=== PATIENT | female | born 1980 | race Caucasian/White ===

== ENCOUNTER 2016-11-02 15:40 | Outpatient (CLI) | payer BC ==
--- OUTSIDE RECORDS SUMMARY | 2016-11-02 15:44 | XMS REPORT | Continuity of Care Document ---
Author Author [facility] Organization [facility] Address Unknown Phone Unavailable Care Team Providers Care Associate Financial Planner Name Role Phone TERRI HAIR MD PCP Insurance Providers Payer Name Policy Number Subscriber Name Relationship [facility] [id number] Adam Mead 01 Advance Directives Directive Response Recorded Date/Time Advance Directives No 09/26/16 6:30pm Health Care Power of Relief Mate No 09/26/16 6:30pm Organ Donor Yes 09/26/16 6:30pm Resuscitation Status Full Code 09/26/16 6:30pm Problems No problem information available. Medications No medication information available. Social History Social History Problem Response Recorded Date/Time Recent Foreign Travel No 09/26/2016 6:33pm Recent Infectious Disease Exposure No 09/26/2016 6:33pm Smoking Status Never a Smoker 09/26/2016 6:31pm Query Response Start Date Stop Date Smoking Status Never a Smoker Hospital Discharge Instructions No hospital discharge instructions. Plan of Care Discharge Date 09/26/16 6:58pm Instructions/Education Provided OB OUTPATIENT DISCHARGE Prescriptions See Medication Section Functional Status No functional status results. Allergies, Adverse Reactions, Alerts No allergy information available. Immunizations No immunization records. Vital Signs Acute Vital Signs Vital Response Date/Time Temperature (Fahrenheit) 98.3 degrees F (97.6 - 99.5) 09/26/2016 5:45pm Temperature (Calculated Celsius) 36.19525 degrees C (36.4 - 37.5) 09/26/2016 5:45pm Temperature Source Tympanic 09/26/2016 5:45pm Pulse Rate (adult) 87 bpm (60 - 90) 09/26/2016 5:45pm Respiratory Rate 18 bpm (12 - 24) 09/26/2016 5:45pm Blood Pressure 119/77 mm Hg 09/26/2016 5:45pm Blood Pressure Mean 91 mm Hg 09/26/2016 5:45pm Pain Numeric Pain Scale 2 09/26/2016 6:32pm Height (Feet) 5 feet 09/26/2016 5:00pm Height (Inches) 6.00 inches 09/26/2016 5:00pm Height (Calculated Centimeters) 167.103409 cm 09/26/2016 5:00pm Weight (Pounds) 178 pounds 09/26/2016 5:00pm Weight (Ounces) 0.0 oz 09/26/2016 5:00pm Weight (Calculated Grams) 26155.44 gm 09/26/2016 5:00pm Weight (Calculated Kilograms) 80.062102 kilograms 09/26/2016 5:00pm Calculated BMI 28.7 09/26/2016 5:00pm Results Laboratory Results Test Name Result Units Flags Reference Collection Date/Time Result Date/ Time Comments Urine Color YELLOW 09/26/2016 5:45pm 09/26/2016 6:07pm Urine Clarity SLIGHTLY CLOUDY 09/26/2016 5:45pm 09/26/2016 6:07pm Urine pH 7 5-9 09/26/2016 5:45pm 09/26/2016 6:07pm Urine Specific Theresa 1.015 * 1.016-1.022 09/26/2016 5:45pm 2015 6:07pm Urine Protein NEGATIVE NEGATIVE 09/26/2016 5:45pm 09/26/2016 6:07pm Urine Glucose (UA) NEGATIVE NEGATIVE 09/26/2016 5:45pm 09/26/2016 6: 07pm Urine RBC (Auto) NEGATIVE NEGATIVE 09/26/2016 5:45pm 09/26/2016 6: 07pm Urine Ketones NEGATIVE NEGATIVE 09/26/2016 5:45pm 09/26/2016 6:07pm Urine Nitrite NEGATIVE NEGATIVE 09/26/2016 5:45pm 09/26/2016 6:07pm Urine Bilirubin NEGATIVE NEGATIVE 09/26/2016 5:45pm 09/26/2016 6: 07pm Urine Urobilinogen NORMAL MG/DL NORMAL 09/26/2016 5:45pm 09/26/2016 6: 07pm Urine Leukocyte Esterase NEGATIVE NEGATIVE 09/26/2016 5:45pm 2015 6:07pm Urine RBC NONE /HPF 09/26/2016 5:45pm 09/26/2016 6:07pm Urine WBC NONE /HPF 09/26/2016 5:45pm 09/26/2016 6:07pm Urine Bacteria NONE /HPF 09/26/2016 5:45pm 09/26/2016 6:07pm Urine Squamous Epithelial Cells 0-2 /HPF 09/26/2016 5:45pm 2015 6:07pm Urine Crystals NONE /LPF 09/26/2016 5:45pm 09/26/2016 6:07pm Urine Casts NONE /LPF 09/26/2016 5:45pm 09/26/2016 6:07pm Urine Mucus NEGATIVE /LPF 09/26/2016 5:45pm 09/26/2016 6:07pm Urine Culture Indicated NO 09/26/2016 5:45pm 09/26/2016 6:07pm Procedures No known history of procedures. Encounters Encounter Location Arrival/Admit Date Discharge/Depart Date Attending Provider Departed Clinic [facility] 09/26/16 5:30pm 09/26/16 6: 58pm GARETT ORTIZ MD
[2016-11-02 18:00] VITALS: BP 109/64
[2017-01-08] MEDS ORDERED: IBUP-1780 PO (08:13)
[2017-01-08] MEDS ORDERED: OXYC-465 PO (08:13)
[2017-01-08] MEDS ORDERED: DOCU100C37 PO (08:13)
== END 2016-11-02 18:00 | disposition home or self-care (01) ==
LOC: WSo 15:40
PROVIDERS: ATTEND Obstetrics & Gynecology
DX: Z41.8 Encounter for other procedures for purposes other than remedying health state (principal)
CPT/HCPCS: 86850; 96372

== ENCOUNTER 2017-01-07 07:00 | Inpatient (IN) | payer BC ==
[2017-01-07] VITALS (54 sets, daily range): BP systolic 90–141; BP diastolic 50–79
[~2017-01-07] VITALS: Ht 172.7 cm; Wt 83.9 kg
--- OUTSIDE RECORDS SUMMARY | 2017-01-07 07:24 | XMS REPORT | Continuity of Care Document ---
Author Author [facility] Organization [facility] Address Unknown Phone Unavailable Care Team Providers Care Orthopedic Physician Name Role Phone TERRI HAIR MD PCP Insurance Providers Payer Name Policy Number Subscriber Name Relationship [facility] [[email or web address]] [id number] Adam Mead 01 Advance Directives Directive Response Recorded Date/Time Advance Directives No 09/26/16 6:30pm Health Care Power of Nascar Driver No 09/26/16 6:30pm Organ Donor Yes 09/26/16 [...] - 99.5) 09/26/2016 5:45pm Temperature (Calculated Celsius) 36.53883 degrees C (36.4 - 37.5) 09/26/2016 5:45pm [...] 6.00 inches 09/26/2016 5:00pm Height (Calculated Centimeters) 167.682165 cm 09/26/2016 5:00pm Weight (Pounds) 178 pounds 09/26/2016 5:00pm Weight (Ounces) 0.0 oz 09/26/2016 5:00pm Weight (Calculated Grams) 42677.44 gm 09/26/2016 5:00pm Weight (Calculated Kilograms) 80.022523 kilograms 09/26/2016 5:00pm Calculated BMI 28.7 09/26/2016 5:00pm Results Laboratory Results Test Name Result Units Flags Reference Collection Date/Time Result Date/ Time Comments Urine Color YELLOW 09/26/2016 5:45pm 09/26/2016 6:07pm Urine Clarity SLIGHTLY CLOUDY 09/26/2016 5:45pm 09/26/2016 6:07pm Urine pH 7 5-9 09/26/2016 5:45pm 09/26/2016 6:07pm Urine Specific [place] 1.015 * 1.016-1.022 09/26/2016 5:45pm 2015 6:07pm [...] Discharge/Depart Date Attending Provider Departed Clinic [facility] 09/26/16 5:30pm 09/26/16 6: 58pm GARETT ORTIZ MD
[2017-01-07] MEDS ORDERED: D5 LR IV SOLUTION 1,000 ML IV SCH ×2 (07:54→07:59)
[2017-01-07] MEDS ORDERED: OXYTOCIN/NORMAL SALINE 500 ML IV SCH ×2 (07:59→08:00)
[2017-01-07] MEDS ORDERED: oxyCODONE/APAP 10/325MG (PERCOCET 10) TABLET PO PRN (08:00)
[2017-01-07] MEDS ORDERED: LACTATED RINGERS 1,000 ML IV ONE (08:00)
[2017-01-07] MEDS ORDERED: BENZOCAINE/MENTHOL (DERMOPLAST) 56 ML CAN TP PRN (08:00)
[2017-01-07] MEDS ORDERED: KETOROLAC 30 MG/ML VIAL IV SCH (08:00)
[2017-01-07] MEDS ORDERED: MEASLES,MUMPS,RUBELLA 1 EA INJ SC ONE (08:00)
[2017-01-07] MEDS ORDERED: TETANUS,DIPTH,PERTUSS P/F (BOOSTRIX) 0.5 ML VIAL IM ONE (08:00)
[2017-01-07 08:04] LABS: BASOPHILS % (AUTO) 0 % (0-10); EOSINOPHILS # (AUTO) 0.1 10^3/uL (0.0-0.3); EOSINOPHILS % (AUTO) 1 % (0-10); LYMPHOCYTES # (AUTO) 1.3 X 10^3 (1.0-4.0); LYMPHOCYTES % (AUTO) 14 % (12-44); MEAN CORPUSCULAR HEMOGLOBIN 33 PG (25-34); MEAN CORPUSCULAR HGB CONC 36 G/DL (32-36); MEAN CORPUSCULAR VOLUME 92 FL (80-99); MONOCYTES # (AUTO) 0.9 X 10^3 (0.0-1.0); MONOCYTES % (AUTO) 9 % (0-12); NEUTROPHILS # (AUTO) 7.3 X 10^3 (1.8-7.8); NEUTROPHILS % (AUTO) 77 % (42-75); PLATELET COUNT 149 10^3/uL (130-400); RED BLOOD COUNT 3.69 10^6/uL (4.35-5.85); WHITE BLOOD COUNT 9.6 10^3/uL (4.3-11.0)
--- NOTE | 2017-01-07 08:06 | History & Physical ---
History and Physical this patient is a 28-year-old white female with an EDC of 3 [phone] following clinic for significant polyhydramnios. She is admitted now for induction of labor. And 2/7 weeks' gestation. She has culture was negative. She was having regular contractions. She denies recurrent membranes or bleeding. She has had no other problems during this . As none Medications are vitamins and Pepcid Medical history, past surgical history, obstetric history, family history, social histories are per the antepartum record HEENT exam is normal Neck is supple no lymphadenopathy no thyromegaly abdomen is gravid soft nontender nondistended Extremities show no clubbing cyanosis. There is no Homans sign. Exam reveals a cervix is almost recently dilated 60 -70 percent effaced, and soft, anterior. presentation Vertex. At the +1 station should score is 8 and 9 Assessment and plan term at 38-2/7 weeks' gestation complicated by polyhydramnios in a patient with AMA. Plan is for induction of labor with Pitocin anticipation is for vaginal delivery. term at 38-2/7 weeks' gestation with polyhydramnios/AMA admitted for induction of labor Allergies and Home Medications Allergies Coded Allergies: No Known Drug Allergies (Unverified , 01/07/17) GARETT ORTIZ MD Jan 07, 2017 8:06 am
--- NOTE | 2017-01-07 08:06 | OB Bishop Score ---
Hensley Score 8 GARETT ORTIZ MD Jan 07, 2017 8:06 am
[2017-01-07] MEDS ORDERED: LIDOCAINE PF 2% 10 ML (XYLOCAINE) AMP ONE (09:17)
[2017-01-07] MEDS ORDERED: SUFENTA 0.6MCG/ML BUPIVA 0.125 100 ML ONE (09:17)
[2017-01-07] MEDS ORDERED: fentaNYL INJECTION 100 MCG/2 ML AMP ONE (09:17)
[2017-01-07] MEDS ORDERED: BUPIVACAINE 0.25% 30 ML (SENSORCAINE) VIAL ONE (09:17)
[2017-01-07] MEDS ORDERED: LACTATED RINGERS 1,000 ML IV SCH (10:09)
[2017-01-07] MEDS ORDERED: NALOXONE 0.4 MG/ML 1 ML (NARCAN) VIAL IV PRN ×2 (10:15)
[2017-01-07] MEDS ORDERED: METOCLOPRAMIDE INJ 10 MG/2 ML (REGLAN) IV PRN (10:15)
[2017-01-07] MEDS ORDERED: ONDANSETRON 4 MG/2 ML (SDV) Z0FRAN IV PRN (10:15)
[2017-01-07] MEDS ORDERED: EPIDURAL (SUFENTA 0.6MCG/ML BUPIVA 0.125%) 100 ML BAG EPI SCH (10:15)
[2017-01-07] MEDS ORDERED: diphenhydrAMINE 50 MG/ML INJ (BENADRYL) IV PRN (10:15)
[2017-01-07] MEDS ORDERED: LIDOCAINE/EPI 1%-1:200,000 (XYLOCAINE) 30 ML VIAL ONE (14:47)
[2017-01-07] MEDS: DOCUSATE SODIUM 100 MG (COLACE) CAP PO SCH ×2 (17:24→21:08)
[2017-01-07] MEDS: CATHETER FLUSH 10 ML SYR IV SCH ×2 (17:28→20:00)
[2017-01-07] MEDS: KETOROLAC 30 MG/ML VIAL IV SCH (19:57)
[2017-01-08] VITALS: BP 124/78
[2017-01-08] MEDS: KETOROLAC 30 MG/ML VIAL IV SCH (02:18)
[2017-01-08] MEDS ORDERED: CALCIUM CARBONATE 500 MG (TUMS) TAB.CHEW ONE (02:39)
[2017-01-08] MEDS ORDERED: CALCIUM CARBONATE 500 MG (TUMS) TAB.CHEW PO ONE (02:45)
[2017-01-08 05:45] VITALS: BP 112/68
[2017-01-08 07:58] VITALS: BP 124/80
[2017-01-08] MEDS: IBUPROFEN 800 MG (MOTRIN) TAB PO SCH ×3 (07:59→19:42)
[2017-01-08] MEDS: DOCUSATE SODIUM 100 MG (COLACE) CAP PO SCH ×2 (07:59→19:43)
--- NOTE | 2017-01-08 08:12 | Progress Note-Standard ---
Standard Progress Note Progress Notes/Assess & Plan Progress/Assessment & Plan patient is without complaint. She is ambulating, voiding, tolerating by mouth well, has good pain control. Patient denies chest pain, denies shortness of breath, denies nausea vomiting, denies headache. Vital Signs Date Time Temp Pulse Resp B/P Pulse Ox O2 Delivery O2 Flow Rate FiO2 01/08/17 07:58 98.0 86 18 124/80 98 Room Air 01/08/17 05:45 97.3 74 18 112/68 Room Air 01/08/17 00:00 97.8 87 124/78 Room Air 01/07/17 21:17 97.8 98 18 127/60 Room Air 01/07/17 20:00 71 18 130/70 Room Air 01/07/17 19:45 117 18 128/67 Room Air 01/07/17 19:30 117 18 119/58 Room Air 01/07/17 19:15 122 22 Room Air 01/07/17 19:10 100.5 01/07/17 19:00 18 Room Air 01/07/17 18:55 93 18 124/74 Room Air 01/07/17 18:45 99.4 76 18 103/59 99 Room Air 01/07/17 18:30 98.7 71 18 113/60 99 Room Air 01/07/17 18:15 80 18 123/61 100 Room Air 01/07/17 18:00 81 18 123/61 99 Room Air 01/07/17 17:45 98.9 93 18 121/69 100 Room Air 01/07/17 17:30 91 18 127/56 98 Room Air 01/07/17 17:15 88 18 110/57 99 Room Air 01/07/17 17:00 86 18 118/59 99 Room Air 01/07/17 16:45 97.5 108 18 112/66 100 Room Air 01/07/17 16:30 89 18 104/59 99 Room Air 01/07/17 16:15 64 18 109/61 100 Room Air 01/07/17 16:00 71 18 117/55 100 Room Air 01/07/17 15:45 97.6 87 18 100 Room Air 01/07/17 15:30 77 18 122/63 100 Room Air 01/07/17 15:15 85 18 115/63 100 Room Air 01/07/17 15:00 91 18 113/75 100 Room Air 01/07/17 14:45 76 18 112/70 99 Room Air 01/07/17 14:30 65 20 110/69 100 Room Air 01/07/17 14:15 70 20 111/64 100 Room Air 01/07/17 14:00 69 20 113/68 100 Room Air 01/07/17 13:45 71 20 126/69 100 Room Air 01/07/17 13:30 71 20 112/58 99 Room Air 01/07/17 13:15 81 18 103/64 99 Room Air 01/07/17 13:00 64 18 103/58 99 Room Air 01/07/17 12:45 68 18 109/59 99 Room Air 01/07/17 12:30 61 18 109/60 100 Room Air 01/07/17 12:15 68 16 111/65 100 Room Air 01/07/17 12:00 96.1 81 18 112/66 100 Room Air 01/07/17 11:45 72 16 110/67 100 Room Air 01/07/17 11:30 63 16 111/58 100 Room Air 01/07/17 11:15 67 16 115/64 99 Room Air 01/07/17 11:00 65 16 116/61 99 Room Air 01/07/17 10:45 67 18 101/75 99 Room Air 01/07/17 10:30 78 18 94/50 100 Room Air 01/07/17 10:15 81 18 111/56 100 Room Air 01/07/17 10:10 92 18 120/68 100 Room Air 01/07/17 10:05 85 20 110/55 100 Room Air 01/07/17 10:00 85 20 125/58 100 Room Air 01/07/17 09:55 86 20 117/56 100 Room Air 01/07/17 09:50 86 20 109/68 100 Room Air 01/07/17 09:45 80 20 113/69 100 Room Air 01/07/17 09:35 76 20 108/65 Room Air 01/07/17 09:20 71 20 90/53 Room Air 01/07/17 09:05 82 20 94/52 Room Air 01/07/17 08:50 81 18 98/56 Room Air 01/07/17 08:35 77 18 95/54 Room Air 01/07/17 08:20 81 18 111/79 Room Air I & O 01/08/17 07:00 Intake Total 2500 ml Balance 2500 ml signs are stable. Patient is afebrile. Fundus is firm below the umbilicus is nontender. Extremities show no clubbing or cyanosis. There is no Homans sign. There is some pretibial pitting edema that is normal. Assessment and plan day number 1 status post term spontaneous vaginal delivery doing well. Plan is for routine convalescence care today and allow discharge home tomorrow Final Diagnosis term spontaneous vaginal delivery at 38-2/7 weeks' gestation GARETT ORTIZ MD Jan 08, 2017 8:12 am
[2017-01-08] MEDS ORDERED: OXYC-465 PO (08:13)
[2017-01-08] MEDS ORDERED: IBUP-1780 PO (08:13)
[2017-01-08] MEDS ORDERED: DOCU100C37 PO (08:13)
--- NOTE | 2017-01-08 08:14 | Discharge Instructions ---
Discharge Instructions Discharge Medications New, Converted or Re-Newed RX: RX on Chart Patient Instructions Patient Instructions: as directed Return to The Hospital For: as directed Activity & Diet Discharge Diet: No Restrictions Activity as Tolerated: No Orders-Post D/C & Referrals Follow Up Appt: Call to make follow up appt. for patient in 4 weeks. Activity Per routine post vaginal delivery instructions. Diet as tolerated Patient may shower or tub bathe as desired. GARETT ORTIZ MD Jan 08, 2017 8:14 am
--- NOTE | 2017-01-08 09:23 | Anesthesia-Regional Post-Op ---
Regional Patient Condition Mental Status: Alert, Oriented x3 Circulation: Same as Pre-Op Headache: Absent Sensation: Full Recovery Motor Block: Absent Post Op Complications Complications None Follow Up Care/Instructions Patient Instructions None needed. Anesthesia/Patient Condition Patient is doing well, no complaints, stable vital signs, no apparent adverse anesthesia problems. No complications reported per nursing. YANELIS ROSSI CRNA Jan 08, 2017 09:23
[2017-01-08 11:57] VITALS: BP 127/80
[2017-01-08 16:50] VITALS: BP 113/68
[2017-01-08] MEDS ORDERED: CALCIUM CARBONATE 500 MG (TUMS) TAB.CHEW PO PRN (18:15)
[2017-01-08 19:30] VITALS: BP 127/81
--- NOTE | 2017-01-09 00:06 | PROCEDURE REPORT ---
PROCEDURE PHYSICIAN: GARETT ORTIZ DATE OF PROCEDURE: 01/07/2017 DELIVERY NOTE: The patient delivered by term spontaneous vaginal delivery of a viable female infant with Apgars of 8 and 9 at 1 and 5 minutes respectfully. Weight was 8 pounds, 10 ounces. time was 1910. Cord blood pH is pending. The infant delivered over a midline episiotomy performed once the baby had been pushed down on the perineum and the perineum was unyielding. The patient preferred episiotomy to a laceration. We performed the episiotomy. The patient delivered the baby with the next series of pushes. The infant was bulb suctioned on delivery of the head and again on completion of the delivery. There was a mild shoulder dystocia primarily I think due to the persistent effect of the epidural. The patient was put in Jovan. Suprapubic pressure was applied and with the next contraction and the next push, the baby delivered promptly. The infant was bulb suctioned on delivery of the head and again on completion of the delivery. Cord bloods were obtained. The placenta delivered spontaneously P[place]co. It was normal with three-vessel cord. The cervix, vagina, rectum and perineum were examined and found intact, except for the midline episiotomy, which was repaired with a single suture of 3-0 Vicryl Rapide in the usual manner. EBL was around 250 mL. The patient tolerated the procedure and the repair well and remained in the LDR for recovery. The baby remained with the mom. Job ID: [id number] Dictated Date: 01/07/2017 19:30:36 [employer] Window [employer] Date: 01/09/2017 00:01:16 / ike
[2017-01-09 02:05] VITALS: BP 110/65
[2017-01-09] MEDS: IBUPROFEN 800 MG (MOTRIN) TAB PO SCH ×2 (02:06→08:21)
[2017-01-09] MEDS: DOCUSATE SODIUM 100 MG (COLACE) CAP PO SCH (08:21)
[2017-01-09 08:23] VITALS: BP 130/92
--- NOTE | 2017-01-09 08:59 | Postpartum Progress Note ---
Note Note Day # 1 Subjective: Patient is without complaints. Ambulating, voiding. Tolerating a regular diet without nausea or vomiting. Normal lochia. Pain is well controlled with oral pain medications. Objective: Vital Sign - Last 12Hours 01/09/17 01/09/17 02:05 08:23 Temp 97.7 97.8 Pulse 79 67 Resp 20 18 B/P 110/65 130/92 Pulse Ox 97 99 O2 Delivery Room Air Room Air Physical Exam: General - Alert and oriented, no apparent distress Abdomen - Soft, appropriately tender to palpation, non-distended, fundus firm at umbilicus Extremities - no edema, negative Andry's bilaterally no new labs Assessment: 36 y/o post- day # 1, status post spontaneous vaginal delivery following IOL @ 38wga for AMA, polyhydramnios. Plan: Routine care. Encourage breast feeding. Encourage ambulation. Two mildly elevated BPs - all others normal. Discussed with pt risk of pre- eclampsia, especially given her AMA status. She has no severe si/sx so lab studies would not change my management at this time. Plan for discharge today as per Dr. Tomlinson's instructions. Vitals - Labs Vital Signs - I&O Vital Signs Date Time Temp Pulse Resp B/P Pulse Ox O2 Delivery O2 Flow Rate FiO2 01/09/17 08:23 97.8 67 18 130/92 99 Room Air 01/09/17 02:05 97.7 79 20 110/65 97 Room Air 01/08/17 19:30 97.6 84 20 127/81 99 Room Air 01/08/17 16:50 97.6 75 20 113/68 98 Room Air 01/08/17 11:57 98.0 90 18 127/80 99 Room Air MARILUZ PRO MD Jan 09, 2017 08:59
[2017-01-09] MEDS ORDERED: TETANUS,DIPTH,PERTUSS P/F (BOOSTRIX) 0.5 ML VIAL IM ONE (10:49)
== END 2017-01-09 11:25 | disposition home or self-care (01) | DRG 775 ==
LOC: LDRP 07:21
PROVIDERS: ADMIT Obstetrics & Gynecology; ATTEND Obstetrics & Gynecology
PROC: 10E0XZZ Delivery of Products of Conception, External Approach (ICD-10-PCS; principal; 2017-01-07)
PROC: 0W8NXZZ Division of Female Perineum, External Approach (ICD-10-PCS; 2017-01-07)
DX: O40.3XX0 Polyhydramnios, third trimester, not applicable or unspecified (principal); O66.0 Obstructed labor due to shoulder dystocia; O09.523 Supervision of elderly multigravida, third trimester; Z3A.38 38 weeks gestation of pregnancy; Z37.0 Single live birth; Z23 Encounter for immunization
CPT/HCPCS: 36415; 85025; 86850; 86900; 86901; 88307; 90715